=== PATIENT | male | born 1970 | race Caucasian/White ===

== ENCOUNTER 2018-03-08 12:11 | Emergency (ER) | payer OTHER ==
[2018-03-08 12:31] VITALS: BP 142/92; PULSE 61; TEMP 98.4; BMI 36.7
--- NOTE | 2018-03-08 13:00 | PDOC ---
History of Present Illness - General Chief Complaint: Chronic pain Stated Complaint: LEFT KNEE PAIN Time Seen by Provider: 03/08/18 12:48 History Source: Patient Exam Limitations: Clinical Condition - History of Present Illness Initial Comments: 03/08/18 12:56 Patient withsignificant past medical history present with complain of persistent left knee pain on the medial side status post twisted knee doing softball 2 weeks ago. Patient reported he felt a popping sound while playing softball 2 weeks ago and has been having intermittent pain since then. Patient reported increased pain with ambulation. Denies any other symptoms Timing/Duration: other (2 weeks) Past History - Past Medical History Allergies/Adverse Reactions: Allergies Allergy/AdvReac Type Severity Reaction Status Date / Time Penicillins Allergy Verified 03/08/18 12:28 Home Medications: Ambulatory Orders Ibuprofen 800 mg PO TID PRN #20 tablet 03/08/18 COPD: No - Suicide/Smoking/Psychosocial Hx Smoking History: Never smoked Hx Alcohol Use: No Drug/Substance Use Hx: No Review of Systems - Review of Systems Able to Perform ROS?: Yes Is the patient limited Pashto proficient: No Constitutional: No: Chills, Diaphoresis, Fever, Loss of Appetite, Malaise, Night Sweats, Weakness, Weight Stable, Unintentional Wgt. Loss, Unexplained wgt Loss, Other HEENTM: No: Eye Pain, Blurred Vision, Tearing, Recent change in vision, Double Vision, Cataracts, Ear Pain, Ocular Prothesis, Ear Discharge, Nose Pain, Nose Congestion, Tinnitus, Nose Bleeding, Hearing Loss, Throat Pain, Throat Swelling , Mouth Pain, Dental Problems, Difficulty Swallowing, Mouth Swelling, Other Respiratory: No: Cough, Orthopnea, Shortness of Breath, SOB with Exertion, SOB at Rest, Stridor, Wheezing, Productive cough, Hemoptysis, Other Cardiac (ROS): No: Chest Pain, Edema, Irregular Heart Rate, Lightheadedness, Palpitations, Syncope, Chest Tightness, Other ABD/GI: No: Abdominal Distended, Abd. Pain w/ defecation, Blood Streaked Bowels , Constipated, Diarrhea, Difficulty Swallowing, Nausea, Poor Appetite, Poor Fluid Intake, Rectal Bleeding, Vomiting, Indigestion, Abdominal cramping, Tarry Stools, Other Musculoskeletal: Yes: See HPI, Joint Pain (left knee), Muscle Pain (medial side of left knee). No: Joint Swelling, Muscle Weakness, Joint Stiffness All Other Systems: Reviewed and Negative *Physical Exam - Vital Signs Last Vital Signs Temp Pulse Resp BP Pulse Ox 98.4 F 61 16 142/92 99 03/08/18 12:20 03/08/18 12:20 03/08/18 12:20 03/08/18 12:20 03/08/18 12:20 - Physical Exam Comments: 03/08/18 12:58 GENERAL: Well developed, well nourished. Awake and alert. No acute distress. HEENT: Normocephalic, atraumatic. PERRLA, EOMI. No conjunctival pallor. Sclera are non- icteric. Moist mucous membranes. Oropharynx is clear. NECK: Supple. Full ROM. No JVD. Carotid pulses 2+ and symmetric, without bruits. No thyromegaly. No lymphadenopathy. CARDIOVASCULAR: Regular rate and rhythm. No murmurs, rubs, or gallops. Distal pulses are 2+ and symmetric. PULMONARY: No evidence of respiratory distress. Lungs clear to auscultation bilaterally. No wheezing, rales or rhonchi. ABDOMINAL: Soft. Non-tender. Non-distended. No rebound or guarding. No organomegaly. Normoactive bowel sounds. MUSCULOSKELETAL : Mild tenderness to medial collateral ligaments of left knee which is worse when external rotation of left knee.negative anterior-posterior drawer tests of left knee .Normal range of motion at all joints. No bony deformities or tenderness. EXTREMITIES: No cyanosis. No clubbing. No edema. No calf tenderness. SKIN: Warm and dry. Normal capillary refill. No rashes. No jaundice. NEUROLOGICAL: Alert, awake, appropriate. Cranial nerves 2-12 intact. No deficits to light touch and temperature in face, upper extremities and lower extremities. No motor deficits in the in face, upper extremities and lower extremities. Normoreflexic in the upper and lower extremities. Normal speech. Toes are down- going bilaterally. Gait is normal without ataxia. PSYCHIATRIC: Cooperative. Good eye contact. Appropriate mood and affect. General Appearance: Yes: Nourished, Appropriately Dressed. No: Apparent Distress ED Treatment Course - RADIOLOGY Radiology Studies Ordered: Category Date Time Status KNEE 3 POS-LEFT [RAD] Stat Radiology 03/08/18 12:55 Ordered Medical Decision Making - Medical Decision Making 03/08/18 12:59 Patient with no significant past medical history present with complain of persistent left knee pain status post softball injury 2 weeks ago. Exams significant for mild pain over medial collateral ligament of left knee. symptoms likely knee sprain. X-ray of left knee ordered to rule out acute pathology or fracture of left knee. Patient will be treated on knee support with NSAIDs and orthopedist follow-up if negative x-ray 03/08/18 13:21 X-ray of left knee shows no acute fracture or dislocation. Patient stable on home discharge on NSAIDs with advice to use home knee brace daily until orthopedics follow-up. *DC/Admit/Observation/Transfer Diagnosis at time of Disposition: Knee MCL sprain Qualifiers: Encounter type: initial encounter Laterality: left Qualified Code(s): S83.412A - Sprain of medial collateral ligament of left knee, initial encounter - Discharge Dispostion Disposition: HOME Condition at time of disposition: Stable Decision to Admit order: No - Prescriptions Prescriptions: Ibuprofen 800 mg PO TID PRN #20 tablet PRN Reason: knee pain - Referrals Referrals: Manas Bell MD [Staff Physician] - - Patient Instructions Printed Discharge Instructions: Knee Sprain, DI for Knee Sprain Additional Instructions: Take prescribed medication as needed for pain. Use home knee brace daily until orthopedics follow-up. Follow up with preferred orthopedics as soon as possible - Post Discharge Activity
== END 2018-03-08 13:23 | disposition home or self-care (01) ==
LOC: JERFT 12:11
DX: S83.412A Sprain of medial collateral ligament of left knee, initial encounter (principal); X50.1XXA Overexertion from prolonged static or awkward postures, initial encounter; Y93.64 Activity, baseball; Y92.320 Baseball field as the place of occurrence of the external cause; Y99.8 Other external cause status
CPT/HCPCS: 73562-TC-LT-FY; 99281-25